=== PATIENT | female | born 1990 | race Caucasian/White ===

== ENCOUNTER 2018-09-09 22:25 | Emergency (ER) | payer MEDICAID, SELFPAY ==
[2018-09-09 22:26] VITALS: BP 109/70; PULSE 107; RESP 16; TEMP 36.5; O2SAT 95; BMI 26.5
--- NOTE | 2018-09-09 22:35 | ED.VISSUMM ---
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, indicates she has had a cough for 2 months her 32 weeks currently, uncomplicated no abdominal pain no vaginal bleeding no discharge eating and drinking bowel bladder habits been normal, she indicates her physicians are aware that she has been coughing and have given her a list of over the medic counter medication she can use but those are not helping and she presents to the emergency room because the persistence of the cough, she has no cardiopulmonary disease or disorders the cough is productive of thick mucus at times otherwise is a dry cough, she had copious rhinorrhea Physical Examination: [] Vitals are within normal range pulse ox is 96% on room air she has a harsh dry cough here General, no distress resting comfortably, drinking 7-Up HEENT is generally unremarkable quite a bit of rhinorrhea throat is clear The neck is supple no adenopathy Cardiovascular, regular rate and rhythm Lungs, clear bilateral Abdomen, soft nontender C Extremities, no clubbing cyanosis or edema Neurologic, awake alert answering questions appropriately moving all 4 extremities Test Results: [] Emergency Department Course and Treatment: [] Patient is in no distress except for the harsh coughing at this time chest x-rays obtained Afrin nasal spray aerosols, x-ray was unremarkable per radiology, did send off a pertussis nasal culture she understands at that result is not available tonight and she should have her doctors check it in a few days if it is positive she will require antibiotics she has been completely immunized she will be discharged on Proventil inhaler, Flonase Mucinex DM and she will follow-up with her MAINTENANCE OF WAY SUPERINTENDENT's tomorrow continue to force fluids and follow-up she is comp with this plan Treatment Plan: [] Disposition: [] Home stable Impression: [] 32 weeks uncomplicated, harsh cough for 2 months This note was generated with [employer] dictation software. It may contain incorrect words, spelling, and punctuation that were not noted in review of the chart prior to signing ED Disposition - Plan for ED Patient: Chief Complaint: Cold Sx Instructions: ED Upper Resp Infec No Abx Tx Prescriptions: Fluticasone 0.05% [Flonase Nasal [place]] 1 spray NASAL BID #1 bottle Guaifenesin/Dextromethorphan [Mucinex Dm ER 1,200-60 mg Tab] 1 ea PO BID #14 [email or web address] Referrals: Dave Thomas DO [Primary Care Provider] -
--- NOTE | 2018-09-09 22:40 | RAD_ITS ---
STUDY: X-RAY CHEST REASON FOR EXAM: Female, 28 years old. Cough, congestion for 3 weeks, TECHNIQUE: PA and lateral views of the chest. COMPARISON: 01/02/2015 FINDINGS: The lungs are clear and expanded. There is no demonstrated pleural abnormality. Normal size heart. Normal mediastinum and andreas. Normal visualized pulmonary arteries. Normal visualized aortic arch and descending thoracic aorta. Normal visualized thoracic spine. Normal visualized ribs, clavicles, and shoulders. There is no demonstrated abnormality of the visualized soft tissue structures of the upper abdomen. RAD/Chest PA and Lateral IMPRESSION: Normal x-ray examination of the chest. Electronically Signed: Haim Bryson MD at 22:54 EST , Service support ,
--- NOTE | 2018-09-09 22:46 | ED.DEP ---
ED Disposition - Plan for ED Patient: Chief Complaint: Cold Sx Instructions: ED Upper Resp Infec No Abx Tx Prescriptions: Fluticasone 0.05% [Flonase Nasal [place]] 1 spray NASAL BID #1 bottle Guaifenesin/Dextromethorphan [Mucinex Dm ER 1,200-60 mg Tab] 1 ea PO BID #14 [email or web address] Referrals: Dave Thomas DO [Primary Care Provider] -
[2018-09-09] MEDS: Ipratropium/Albuterol Sulfate 3 ML AMPUL.NEB INHALATION (22:56)
[2018-09-09 22:57] VITALS: PULSE 110; RESP 18
[2018-09-09 23:46] VITALS: BP 117/69; PULSE 106; RESP 16; O2SAT 97
== END 2018-09-09 23:47 | disposition home or self-care (01) ==
LOC: ED 22:54
PROVIDERS: Emergency Provider Emergency Medicine; Family Provider Student in an Organized Health Care Education/Training Program; PCP Student in an Organized Health Care Education/Training Program
DX: O99.513 Diseases of the respiratory system complicating pregnancy, third trimester (principal); J06.9 Acute upper respiratory infection, unspecified; R05 Cough; O99.333 Smoking (tobacco) complicating pregnancy, third trimester; Z3A.32 32 weeks gestation of pregnancy
CPT/HCPCS: 71046; 87798; 94640; 94664; 99282

== ENCOUNTER 2019-06-09 16:01 | Emergency (ER) | payer MEDICAID, SELFPAY ==
[2019-06-09 16:03] VITALS: BP 101/65; PULSE 107; PULSE 115; RESP 18; RESP 20; TEMP 36.8; O2SAT 96; O2SAT 98; BMI 25.6
--- NOTE | 2019-06-09 16:28 | ED.VIS.GEN ---
History of Present Illness Chief Complaint: Vag Bld, Preg Informant: Patient Onset: Today Context: Sudden Onset Narrative: Patient is a 28-year-old female currently 16 weeks gestation who is G 10 P4 presenting with sudden onset of vaginal bleeding. Patient came immediately to the emergency room. Patient states she was seen on the couch when she felt a gush of fluid. She thought he peed herself. She then went to the bathroom and said there was bright red blood like a.. Patient is very concerned she is having a recurrent miscarriage. She is not having any associated abdominal pain. She is otherwise been feeling well. Her FIRE PROTECTION INSPECTOR [facility]. Patient had RhoGam earlier in the , on April 19, about a month and a half ago. Patient states she is otherwise feeling well. She denies any other complaints or concerns at this time. Past Medical History - Allergies and Home Meds Allergies/Adverse Reactions: Allergies No Known Allergies Allergy (Verified 06/09/19 16:02) Primary Care Physician: Alice Mathew DO [Primary Care Provider] - Past Medical History: - - Multiple miscarriages Lives: Spouse/ Significant Other Review of Systems All systems negative except as indicated Genitourinary: Reports: - - 16 weeks gestation, vaginal bleeding Physical Exam Vital Signs/Narrative: Vital Signs Temp Pulse Resp BP Pulse Ox 06/09/19 16:03 98.3 F 107 H 20 H 101/65 96 Inital Vital Signs reviewed: Yes General: Well nourished, Well developed, No Acute Distress Head: Normocephalic, Atraumatic Eyes: Perrl, EOMI ENT: Moist mucous membranes, No rhinorrhea Neck: Supple, Nontender Cardiovascular: Regular rate, Regular rhythm, No murmurs Respiratory: No distress, CTA bilaterally, Chest nontender Abdomen: Soft, Nontender, Nondistended, Normal bowel sounds, - - Gravid abdomen with fundus about 3 cm below the level of the umbilicus : - - Bright red blood and fluid noted in vaginal canal, no cervical motion tenderness, cervical os is soft and approximate 1 cm. Bedside ultrasound performed by myself shows single intrauterine gestation with heart tones of 150. Back: Nontender, Normal Inspection Extremities: Nontender, No edema Skin: Normal color, No rash Neurological: Alert, Oriented x3, Cranial nerves II-XII grossly intact, Normal Strength, Normal Sensation Psychological: Normal affect, Normal Mood Diagnostic/Tx/Re-eval Laboratory Data 06/09/19 06/09/19 06/09/19 16:20 16:20 16:20 WBC 9.4 RBC 3.78 L Hgb 11.5 L Hct 34.0 L MCV 89.9 MCH 30.4 MCHC 33.8 RDW Std Deviation 39.9 RDW Coeff of Ricky 12.1 Plt Count 212 MPV 9.8 Immature Gran % (Auto) 0.400 Neut % (Auto) 69.4 Lymph % (Auto) 24.3 [place] % (Auto) 5.1 Eos % (Auto) 0.6 Baso % (Auto) 0.2 Absolute Neuts (auto) 6.5 Absolute Lymphs (auto) 2.27 Nucleated RBC % 0 Blood Type O NEGATIVE Screen NEGATIVE Baby's Blood Type PRESUMED RH POS Baby's EMBER TNP - Medical Decision Making Patient is evaluated for vaginal bleeding at 16 weeks . Patient also felt that she had a doyle of fluid before the bleeding started. Patient has low normal blood pressures but is asymptomatic. Likely this is normal for her. She is not having significant bleeding where I am concerned for an acute hemorrhagic anemia. CBC is normal. heart tones are obtained in the ER with bedside ultrasound. Pelvic exam is concerning for fluid that might be amniotic fluid as well as a soft cervix. There is thin red blood in the vaginal canal. Discussed with FIRE PROTECTION INSPECTOR on-call for [facility] who defers management to our OB as he does not think that this requires transfer at this time. Patient states she has follow-up with her FIRE PROTECTION INSPECTOR on Tuesday, 2 days from now. Discussed with Dr. oBb who recommends testing for premature rupture of membranes with swab as well as tested for maternal hemorrhage screen as well as rupture of membrane test. Rupture of membrane test was inconclusive secondary to amount of maternal bleeding. maternal screen was likely negative. Patient was ordered RhoGam however she ultimately refused it because she did not want to wait for it further and states she will just get it on Tuesday when she sees her FIRE PROTECTION INSPECTOR. In addition patient refused a redraw for fibrinogen to further test for rupture of membranes. Finally patient was started on azithromycin in case she did have premature rupture membranes to prevent infection. Patient is counseled to watch for signs of infection including fever. Patient is counseled on risk of spontaneous miscarriage and that there is no intervention possible at this time. She is counseled on signs and symptoms requiring return the emergency room. She is hemodynamically stable to follow-up with her FIRE PROTECTION INSPECTOR on Tuesday. Patient is counseled on signs and symptoms requiring return to the emergency room. Patient verbalizes agreement and understand this plan. Patient discharged home in stable and improved condition. ED Disposition - Plan for ED Patient: Disposition: Home or Assisted Living Instructions: POSSIBLE MISCARRIAGE (Threatened ) Prescriptions: Azithromycin 250 mg PO BID #14 tab Prescription Printed Referrals: Alice Mathew DO [Primary Care Provider] - Additional Instructions: Please follow-up with your FIRE PROTECTION INSPECTOR tomorrow or Tuesday. Call them/the answering line if you have further symptoms. Return the emergency room if you have heavier bleeding, lightheadedness, fever or other concerns. Your ultrasound did show a heart rate however the bleeding and cervix is concerning for a possible miscarriage. It is too soon to tell.
[2019-06-09 16:33] LABS: Absolute Lymphocyte Count 2.27 X10^3/uL (0.83-4.51); Absolute Neutrophil Count 6.5 X10^3/uL (2.0-7.7); Basophil# 0.02 X10^3/uL; Basophil% 0.2 % (0-1); Eosinophil# 0.06 X10^3/uL; Eosinophils% 0.6 % (0-5); Hemoglobin 11.5 g/dL (12.0-15.0); Lymphocyte # 2.27 X10^3/ul (4.0); Lymphocyte % 24.3 % (19-41); Mean Corp Hgb Conc 33.8 g/dL (32-36); Mean Corpuscular Hgb 30.4 pg (27.0-32.0); Mean Corpuscular Volume 89.9 fL (81-99); Mean Platelet Vol. 9.8 fl (6.2-12.0); Monocyte# 0.48 X10^3/uL; Monocyte% 5.1 % (0-10); NRBC Flagged by Analyzer 0 % (0-5); Neutrophil # 6.49 X10^3/uL (2.7-7.7); Neutrophil % 69.4 % (47-70); Platelet Count 212 K/mm3 (150-450); RBC Distribution Width CV 12.1 % (11.6-14.6); RBC Distribution Width SD 39.9 fl (35.1-43.9); Red Blood Count 3.78 M/mm3 (4.2-5.4); White Blood Count 9.4 K/mm3 (4.4-11.0)
--- NOTE | 2019-06-09 17:27 | NURSING ---
DR SRAVANTHI LOPEZ, DR CAI SHELLACKER
[2019-06-09 18:43] VITALS: BP 103/69; PULSE 86; RESP 16; O2SAT 98
[2019-06-09 19:46] VITALS: BP 97/68; PULSE 71; RESP 18; O2SAT 98
--- NOTE | 2019-06-09 19:58 | ED.RN ---
pt reports that she needed to return home due to getting her child home and her boyfriend. pt informed of delay of rhogam and that another blood drawn was needed for fibrinolytic testing. pt refused both saying that she would follow up with her OB on tuesday and that she didn't want to wait any longer in the ed. i apologized to the pt of the delays and her length of stay. dr. tellez was informed of pt's choice, pt was given written and verbal d/c instructions and voiced understanding. off unit via ambulation with steady gait.
--- OUTSIDE RECORDS SUMMARY | 2019-06-13 00:55 | XMS RPT_ITS | CCD ---
:1990 External Reference #:[id number] Author Organization [facility] Care Team Providers Name Role Phone Sunday Bowden Unavailable Unavailable ISAC, Sunday Unavailable Unavailable Crsis, N Unavailable Dennise, L Unavailable Unavailable FABIO KUMAR Attending Unavailable Shreya CAI Referring Unavailable NO PRIMARY CARE Primary Care Unavailable Luiza MCKENZIE Attending Unavailable Rashel CASTRO Referring Unavailable NO PRIMARY CARE Primary Care Unavailable ESTELITA Attending Unavailable SRAVANTHI Referring Unavailable NO PRIMARY CARE Primary Care Unavailable Luiza MCKENZIE Attending Unavailable SRAVANTHI Referring Unavailable NO PRIMARY CARE Primary Care Unavailable Codie JAVIER Attending Unavailable Rashel CASTRO Referring Unavailable NO PRIMARY CARE Primary Care Unavailable Allergies Reported Allergen Reaction(s) Severity Date of Onset Location Cat Translations: [ AO 01-06-2010 - Lynn steel [facility] CATS] [place] [facility] FISH Translations: [ AO 09-18-2012 - Dayana rawls [facility] FISH] [place] [facility] [place] Medications Medication Name Sig Date Prescriber Location meloxicam MELOXICAM 15 MG TABS 05-09-2017 [facility] MELOXICAM Sports Medicine and [id number] [facility] (82111) Dennise Problems Active Problems Category Problem Name Status Date Location Other nervous system Carpal tunnel Active 05-09-2017 - [facility] disorders syndrome [facility] Orthopaedics (4 8306) Past or Other Problems Category Problem Name Status Date Location Other connective tissue Hand pain Completed 05-19-2017 - [facility] Sports disease Medicine and Or thopaedics (98933) Results Result Name Value Range Unit Interpretation Flag Date Location absc on 2019-06-12 ABSC Final Interp Positive Abnormal 06-12-2019 S [facility] ([address]24) Comment: Order Comment: Ordered on n# [id number] Performed By: #### [id number], [id number] ####[facility] [address] [place] [address] Medical Director: Lopez Toro MD Pt Hx check done? Yes Normal 06-12-2019 [facility] (52876) Comment: Order Comment: Ordered on Fi n# [id number] Performed By: #### CD:[id number], [id number] ####[facility] [address] [place] [address] Medical Director: Lopez Toro MD VS SCI Gel 1+ Normal 06-12-2019 [facility] (66682) Comment: Order Comment: Ordered on Fi n# [id number] Performed By: #### CD:[id number], [id number] ####[facility] [address] [place] [address] Medical Director: Lopez Toro MD VS SCII Gel 1+ Normal 06-12-2019 [facility] (79410) Comment: Order Comment: Ordered on Fi n# [id number] Performed By: #### CD:[id number], [id number] ####[facility] [address] [place] [address] Medical Director: Lopez Toro MD abid on 2019-06-12 Antibody Identification Anti-D Normal 2018 [facility] (42959) Comment: Result Comment: 06/11/2019 2 3:09 TMESSINA Patient received Rhogam with in the last 4 months. Performed By: #### CD:[id number], [id number] ####[facility] [address] [place] [address] Medical Director: Lopez Toro MD rpr on 2019-05-18 Reagin Ab RPR Ql (S) Non Reactiive Normal 05-18 [facility] (00 000) Comment: Order Comment: Ordered on Fi n# [id number] Performed By: #### [id number] ## ##[facility] [address] [place], [place] [id number] Medical Director: Lopez Toro MD gp gc on 2019-05-18 Genprobe GC Negative Normal 05-18-2019 [facility] (32875) Comment: Order Comment: Ordered on Fi n# [id number] Result Comment: This Gonorrh oea assay is being performed via a second generation NAAT that utilize s target capture, capsule machine operator mediated amplification and dual kenet ic assay technologies. Performed By: #### [id number], 1 47577 ####[facility] [address] [place] [address] Medical Director: Lopez Toro MD gp chlam on 2019-05 Genprobe Chlamydia Negative Normal 05-18-2019 [facility] (57859) Comment: Order Comment: Ordered on Fi n# [id number] Result Comment: This Chlamyd ia assay is being performed via a second generation NAAT that utilize s target capture, capsule machine operator mediated amplification and dual kenet ic assay technologies. Performed By: #### [id number], 1 57533 ####[facility] [address] [place] [address] Medical Director: Lopez Toro MD rubella screen on Rubella Serology Immune Normal 05-17-2019 [facility] (28716) Comment: Order Comment: Ordered on Fi n# [id number] Performed By: #### [id number] ## ## [facility] Services [address] [place] [address] Specialized Developer: Lopez whitlock MD hiv 1o2 on HIV Panel 1&2 Nonreactive Normal 05-17-2019 [facility] (86064) Comment: Order Comment: Ordered on Fi n# [id number] Performed By: #### [id number] #### [facility] Services [address] [place] [address] Specialized Developer: Lopez whitlock MD hep c ab on 2019-05 Hepatitis C Antibody Nonreactive Normal 019 [facility] (00 000) Comment: Order Comment: Ordered on Fi n# [id number] Performed By: #### [id number], [id number] #### [facility] Services [address] [place] [address] Specialized Developer: Lopez whitlock MD hep b ag on 2019-05 Hepatitis B Surface Nonreactive Normal 05-17-20 19 [facility] (00 000) Comment: Order Comment: Ordered on Fi n# [id number] Result Comment: High levels of serum biotin may interfere with this test. Performed By: #### [id number], [id number] #### [facility] Services [address] [place] [address] Specialized Developer: Lopez whitlock MD c urine on C [facility] Dept of Laboratory Nor mal 05-17-2019 [facility] URINE Services General [address] [place] [address] [phone]) [phone] Name: IWONA SEVERINO : 1990 Admitting Provider: Gender: Female Financial [phone] Number: Location: [facility]. Admit 05/16/2019 Date: Discharge 05/16/2019 Date: Microbiology PROCEDURE: C URINE [] SOURCE: CLEAN CATCH BODY SITE: COLLECTED DATE/TIME: 05/16/20 19 17:04 EDT RECEIVED DATE/TIME: 05/16/2019 20:14 EDT START DATE/TIME: 05/16/2019 20:14 EDT FREE TEXT SOURCE: ORDERING PHYSICIAN: EDWIGE FISHMAN DO, FACOG FINAL REPORTS Final Report [] Verified Date/Time: 05/17/2019 14:15 EDT No growth after 24 hours. L=Low, H= High, *= Abnormal, C=Critical, f=Footnote, c=Corrected, i=Interp Data Name: IWONA SEVERINO Print Date05/21/2019 17:35 EDT Time: Comment: Performed By: #### [id number] ## ## [facility] Services [address] [place] [address] Specialized Developer: Lopez whitlock MD hemo on 2019-05-16 DIFF? No Normal 05-16-2019 [facility] (41030) Comment: Performed By: #### [id number], [id number] #### [facility] Services [address] [place] [address] Specialized Developer: Lopez whitlock MD Erythrocyte distribution 12.8 11.5-14.5 % Normal 05-16 [facility] (RBC) [Ratio] [facility] [place] (89577) Comment: Performed By: #### [id number], [id number] #### [facility] Services [address] [place] [address] Specialized Developer: Lopez whitlock MD Hematocrit (Bld) [Volume 34.9 36.0-46.0 % Low 05-16 [facility] fraction] [place] (00 000) Comment: Performed By: #### [id number], [id number] #### [facility] Services [address] [place] [address] Specialized Developer: Lopez whitlock MD Hemoglobin (Bld) 11.9 12.0-16.0 g/dL Low 05-16-2019 [facility] [Mass/Vol] [place] (0 0000) Comment: Performed By: #### [id number], [id number] #### [facility] [address] [place] [address] Specialized Developer: Lopez whitlock MD MCH (RBC) [Entitic mass] 31.0 27.0-34.0 pg Normal 05-16 [facility] (00 000) Comment: Performed By: #### [id number], [id number] #### [facility] Services [address] [place] [address] Specialized Developer: Lopez whitlock MD MCHC (RBC) [Mass/Vol] 34.0 32.0-37.0 g/dL Normal 05-16-20 19 [facility] (00 000) Comment: Performed By: #### [id number], [id number] #### [facility] Services [address] [place], [place] [address] Specialized Developer: Lopez whitlock MD MCV (RBC) [Entitic vol] 91.1 80.0-100.0 fL Normal 05-16 [facility] (00 000) Comment: Performed By: #### [id number], [id number] #### [facility] Services [address] [place], [place] [address] Specialized Developer: Lopez whitlock MD Nucleated RBC (Bld) [#/Vol] 0 /100WBC Normal [facility] (00 000) Comment: Performed By: #### [id number], [id number] #### [facility] Services [address] [place], [place] [address] Specialized Developer: Lopez whitlock MD Platelet mean volume 9.1 7.4-10.4 fL Normal 9 [facility] (Bld) [Entitic vol] Center (40770) Comment: Performed By: #### [id number], [id number] #### [facility] Services [address] [place] [address] Specialized Developer: Lopez whitlock MD Platelets (Bld) [#/Vol] 207 150-450 x1000 Normal 2018 [facility] (00 000) Comment: Performed By: #### [id number], [id number] #### [facility] Services [address] [place] [address] Specialized Developer: Lopez whitlock MD RBC (Bld) [#/Vol] 3.83 4.20-5.40 x10 Low 05-16-2019 [facility] (91037) Comment: Result Comment: Note: RBC mo rphology is normal unless otherwise stated. Evaluation performed only if differential is requested. Performed By: #### [id number], 215323 #### [facility] Services [address] [place], [place] [address] Specialized Developer: Lopez whitlock MD WBC (Bld) [#/Vol] 8.0 10*3/uL Normal 05-16-2019 [facility] (42164) Comment: Performed By: #### [id number], [id number] #### [facility] Services [address] [place], [place] [address] Specialized Developer: Lopez whitlock MD auto diff on 2019- 0-02 Basophils (Bld) [#/Vol] 0.03 0.00-0.20 x1000 Normal 2018 [facility] (67037) Comment: Performed By: #### [id number], [id number] #### [facility] Services [address] [place], [place] [address] Specialized Developer: Lopez whitlock MD Basos % 0.4 % Normal 05-16-2019 [facility] (48222) Comment: Performed By: #### [id number], [id number] #### [facility] Services [address] [place] [address] Specialized Developer: Lopez whitlock MD Eos Count 0.06 0.00-0.50 x1000 Normal 05-16-2019 [facility] (46396) Comment: Performed By: #### [id number], 073882 #### [facility] Services [address] [place], [place] [address] Specialized Developer: Lopez whitlock MD Eosinophils/100 WBC (Bld) 0.8 % Normal [facility] (47083) Comment: Performed By: #### [id number], [id number] #### [facility] Services [address] [place] [address] Specialized Developer: Lopez whitlock MD Lymphocytes (Bld) 2.12 1.20-4.80 x1000 Normal 05-16-2019 [facility] [#/Vol] [facility] (67174) Comment: Performed By: #### [id number], 395222 #### [facility] Services [address] [place], [place] [address] Specialized Developer: Lopez whitlock MD Lymphocytes/100 WBC (Bld) 26.4 % Normal [facility] (85679) Comment: Performed By: #### [id number], [id number] #### [facility] Services [address] [place], [place] [address] Specialized Developer: Lopez whitlock MD Mcclain Count 0.52 0.10-1.00 x1000 Normal 05-16-2019 [facility] (28960) Comment: Performed By: #### [id number], 571270 #### [facility] Services [address] [place], [place] [address] Specialized Developer: Lopez whitlock MD Monocytes/100 WBC (Bld) 6.4 % Normal 2018 [facility] (48696) Comment: Performed By: #### [id number], 406956 #### [facility] Services [address] [place], [place] [address] Specialized Developer: Lopez whitlock MD Neutrophils (Bld) 5.30 1.40-8.80 x1000 Normal 05-16-2019 [facility] [#/Vol[facility] (48433) Comment: Performed By: #### [id number], 362037 #### [facility] Services [address] [place] [address] Specialized Developer: Lopez whitlock MD Neutrophils/100 WBC (Bld) 66.0 % Normal [facility] (78563) Comment: Performed By: #### [id number], [id number] #### [facility] Services [address] [place] [address] Specialized Developer: Lopez whitlock MD phone msg on 05-07 Phone Msg Normal 05-07-20 [facility] From: L[facility]Z [facility] Sent: 05/07/2019 19:06:46 EDT (50753) Subject: Med Management Submitted: Order:ondansetron (Zofran 8 mg oral tablet) 1 tabs ORAL TID Qty: 30 tabs Duration: 10 days Refills: 1 Substitutions Allowed Route To Pharmacy - [facility] Signed by LOVELY HERNANDEZ [facility] [place] 05/07/2019 19:03:00 She is complaining of nausea and diarrhea. I recommended she try B6 and unisom but she said she didn't have any money. I sent zofran to her pharmacy and discussed risk of cardiac defect. us gravid echo less than 14 weeks office on 2019-04-24 Cholesterol _TA u/s date of exam 04/20/2019 Normal 04-24-2019 [facility] [Mass/Vol] Vi[facility] u/s [facility] LMP: 02/14/2019 Gestational Age: 9w2d LEANNA: 11/21/2019 (90622) U/S: 04/20/2019 Gestational Age: 9w1d LEANNA: 11/22/2019 Herrera IUP with cardiac a ctivity present _184__bpm @ _9_w_2 d with an LEANNA of 11/21/2019 [place] rump length measurements are consistent with given LMP dating Anatomic detail is extremely limited at this early gestational age no gross abnormalities were noted on examination YS 5.3 mm CRL 24.7 mm Normal uterus and ovaries Absence of fluid in pelvis. Comment: Order Comment: Ordered on n# [id number] Result Comment: Technologist : SOFIA Dictated By: EDWIGE FISHMAN DO, FACOG Signed By: Shreya FISHMAN DO, FACOG Transcribed: 04.24.2019 14:2 6 Signed Out: 04/24/19 14:26:4 0 ngpcr on 2019-04-11 GC PCR Source Genital Female Normal 04-11-2019 [facility] ([place]) (19182) Comment: Performed By: #### AMNI #### [place] [id number] [place], [place] [address] N. gonorrhoeae (PCR) Negative Negative Normal 9 [facility] ([place] (0000 0) Comment: Result Comment: Transport tu be received with two swabs. Review collection procedure. Inappropriate collection may cause aberrant results. Molecular (PCR) assay perfor med on the [employer] Regi 4800 System. Performed By: #### AMNI #### [address] [address] N. gonorrhoeae Interp See NG Interp N Normal [facility] ([place]) (0000 0) Comment: Result Comment: N. gonorrhoe ae DNA not detected. Specimen is presumptive negative for N. gonorrhoeae. A negative r esult does not preclude Neisseria gonorrhoeae infection because results de pend on adequate specimen collection, absence of inhibitors, and sufficien t DNA to be detected. See NG Interp N Performed By: #### AMNI #### [address] [address] ctpcr on 2019-04-11 C. trachomatis Interp See CT Interp N Normal [facility] ([place] (0000 0) Comment: Result Comment: C. trachomat is DNA not detected. Specimen is presumptive negative for C. trachomatis. A negative result does not p reclude C. trachomatis infection because results depend on adequate s pecimen collection, absence of inhibitors, and sufficient DNA to be det ected. See CT Interp N Performed By: #### CTPCR, NG PCR1 #### [place] [address] C.trachomatis PCR Negative Negative Normal 04-11-2019 [facility] ([place]) (0000 0) Comment: Result Comment: Transport tu be received with two swabs. Review collection procedure. Inappropriate collection may cause aberrant results. Molecular (PCR) assay perfor med on the Ana Regi 4800 system. Performed By: #### CTPCR, NG PCR1 #### [facility] [address] [place] [address] Chlam Source Genital Female Normal 04-11-2019 [facility] ([place] (47392) Comment: Performed By: #### CTPCR, NG PCR1 #### [facility] [address] [place] [address] hcgq on 2019-04-10 hCG, quantitative 74064.1 mIU/mL Normal 04-10-2019 [facility] ([place] (93088) Comment: Result Comment: HCG Quantita tive 3 Weeks Gestation mIU/mL 5.0 to 12.0 HCG Quantitative 4 Weeks Ges tation mIU/mL 10.0 to 708.0 HCG Quantitative 5 Weeks Ges tation mIU/mL 217.0 to 8245.0 HCG Quantitative 6 Weeks Ges tation mIU/mL 152.0 to 32,177.0 HCG Quantitative 7 Weeks Ges tation mIU/mL 4059.0 to 153,767.0 HCG Quantitative 8 Weeks Ges tation mIU/mL 31,366.0 to 149,094.0 HCG Quantitative 9 Weeks Ges tation mIU/mL 59,109.0 to 135,901.0 HCG Quantitative 10 Weeks Ge station mIU/mL 44,186.0 to 170,409.0 HCG Quantitative 12 Weeks Ge station mIU/mL 27,107.0 to 201,615.0 HCG Quantitative 14 Weeks Ge station mIU/mL 24,302.0 to 93,646.0 Performed By: #### CBC, ADIF F, ANEU, ABOG #### [place] [address] [address] #### BMP, HCGQ, GFR #### [facility] [address] [place] [address] gel abo on ABO/Rh Interp O NEG 04-10-2019 [facility] ([place]) ([address]31) Comment: Performed By: #### CBC, ADIF F, ANEU, ABOG #### [place] [address] #### BMP, HCGQ, GFR #### [address] [address] cbc on 2019-04-10 Erythrocyte distribution 13.0 11.5-14.5 % Normal 04-10 [facility] width (RBC) [Ratio] [facility] ([place]) ([address]79) Comment: Performed By: #### CBC, ADIF F, ANEU, ABOG #### [place] [address] #### BMP, HCGQ, GFR #### [place] [address] Hematocrit (Bld) [Volume 37.3 37.0-47.0 % Normal 04-10 [facility] fraction] ([place]) (0000 0) Comment: Performed By: #### CBC, ADIF F, ANEU, ABOG #### [place] [address] #### BMP, HCGQ, GFR #### [place] [address] Hemoglobin (Bld) 12.4 12.0-16.0 G/dL Normal 04-10-2019 [facility] [Mass/Vol] [facility] ([place] ([address]44) Comment: Performed By: #### CBC, ADIF F, ANEU, ABOG #### [place] [address] #### BMP, HCGQ, GFR #### [address] [address] MCH (RBC) [Entitic mass] 30.7 27.0-31.2 pg Normal 04-10 [facility] ([place]) (0000 0) Comment: Performed By: #### CBC, ADIF F, ANEU, ABOG #### [place] [address] #### BMP, HCGQ, GFR #### [facility] [address] [place], [place] [address] MCHC (RBC) [Mass/Vol] 33.1 33.0-37.0 G/dL Normal 04-10-20 19 [facility] ([place] (0000 0) Comment: Performed By: #### CBC, ADIF F, ANEU, ABOG #### [address] [address] #### BMP, HCGQ, GFR #### [address] [address] MCV (RBC) [Entitic vol] 92.8 80.0-94.0 fL Normal 2018 [facility] ([place] (0000 0) Comment: Performed By: #### CBC, ADIF F, ANEU, ABOG #### [place] [address] #### BMP, HCGQ, GFR #### [place] [address] Platelet mean volume 8.1 7.4-10.4 fL Normal 9 [facility] (Bld) [Entitic vol] ([place]) (83876) Comment: Performed By: #### CBC, ADIF F, ANEU, ABOG #### [place] [address] #### BMP, HCGQ, GFR #### [address] [address] Platelets (Bld) [#/Vol] 209 130-400 10 3/mcL Normal 2018 [facility] ([place]) (75017) Comment: Performed By: #### CBC, ADIF F, ANEU, ABOG #### [place] [address] #### BMP, HCGQ, GFR #### [place] [address] RBC (Bld) [#/Vol] 4.02 4.20-5.40 10 6/mcL Low 04-10-2019 [facility] ([place]) (0000 0) Comment: Performed By: #### CBC, ADIF F, ANEU, ABOG #### [facility] [place] [address] [place], [place] [address] #### BMP, HCGQ, GFR #### [address] [address] WBC (Bld) [#/Vol] 7.10 4.60-10.80 10 3/mcL Normal 04-10-2019 [facility] ([place] ([address]) Comment: Performed By: #### CBC, ADIF F, ANEU, ABOG #### [place] [address] #### BMP, HCGQ, GFR #### [address] [address] bmp on 2019-04-10 Calcium [Mass/Vol] 9.0 8.4-10.2 mg/dL Normal 04-10-2019 [facility] ([place] (0000 0) Comment: Performed By: #### CBC, ADIF F, ANEU, ABOG #### [place] [address] #### BMP, HCGQ, GFR #### [place] [address] Chloride [Moles/Vol] 104 98-107 mmol/L Normal 9 [facility] ([place] (0000 0) Comment: Performed By: #### CBC, ADIF F, ANEU, ABOG #### [place] [address] #### BMP, HCGQ, GFR #### [address] [address] CO2 [Moles/Vol] 23 22-29 mmol/L Normal 04-10-2019 [facility] ([place] ([address]329) Comment: Performed By: #### CBC, ADIF F, ANEU, ABOG #### [place] [address] #### BMP, HCGQ, GFR #### [address] [address] Creatinine [Mass/Vol] 0.52 0.55-1.02 mg/dL Low 04-10-20 19 [facility] ([place] (0000 0) Comment: Performed By: #### CBC, ADIF F, ANEU, ABOG #### [place] [address] #### BMP, HCGQ, GFR #### [address] [address] Electrolyte Balance 13.0 mEq/L Normal 04-10-2019 [facility] ([place] ([address]) Comment: Performed By: #### CBC, ADIF F, ANEU, ABOG #### [place] [address] #### BMP, HCGQ, GFR #### [address] [address] Glucose [Mass/Vol] 75 70-105 mg/dL Normal 04-10-2019 [facility] ([place] ([address]) Comment: Performed By: #### CBC, ADIF F, ANEU, ABOG #### [place] [address] #### BMP, HCGQ, GFR #### [address] [address] Potassium [Moles/Vol] 3.5 3.5-5.1 mmol/L Normal 04-10-20 19 [facility] ([place] (0000 0) Comment: Performed By: #### CBC, ADIF F, ANEU, ABOG #### [place] [address] #### BMP, HCGQ, GFR #### [address] [address] Sodium [Moles/Vol] 140 136-145 mmol/L Normal 04-10-2019 [facility] ([place] (0000 0) Comment: Performed By: #### CBC, ADIF F, ANEU, ABOG #### [place] [address] #### BMP, HCGQ, GFR #### [address] [address] Urea nitrogen [Mass/Vol] 4 7-18 mg/dL Low 04-10 [facility] ([place] ([address]35) Comment: Performed By: #### CBC, ADIF F, ANEU, ABOG #### [address] [address] #### BMP, HCGQ, GFR #### [facility] [address] [place] [address] Urea nitrogen/Creatinine [Mass 8 03-10 ratio Normal 04-10-2019 Critical access hospital] [facility] ([place]) ([address]68) Comment: Performed By: #### CBC, ADIF F, ANEU, ABOG #### [address] [address] #### BMP, HCGQ, GFR #### [address] [address] .neuabs on Neutrophils (Bld) 4.10 2.85-6.16 10 3/mcL Normal 04-10-2019 [facility] [#/Vol] [facility] ([place]) ([address]37) Comment: Performed By: #### CBC, ADIF F, ANEU, ABOG #### [address] [address] #### BMP, HCGQ, GFR #### [address] [address] .gfr on 2019-04-10 GFR Non- 139 ml/min/1.73sqm Normal 04-10-2019 [facility] ([place] ([address]49) Comment: Result Comment: GFR Population mean for Afri can [place]er, Non- Americans Ages 20-29 = 116 mL/min/1.73 sq.m. Ages 30-39 = 107 mL/min/1.73 sq.m. Ages 40-49 = 99 mL/min/1.73 sq.m. Ages 50-59 = 93 mL/min/1.73 sq.m. Ages 60-69 = 85 mL/min/1.73 sq.m. Ages 70+ = 75 mL/min/1.73 sq .m. Chronic Kidney Disease: Less than 60 mL/min/1.73 square meters End Stage Renal Disease: Les s than 15 mL/min/1.73 square meters Performed By: #### CBC, ADIF F, ANEU, ABOG #### [address] [address] #### BMP, HCGQ, GFR #### [address] [address] GFR 169 ml/min/1.73sqm Normal 03-16 [facility] ([place]) (0000 0) Comment: Result Comment: GFR Population mean for Afri can [place]er, Non- Americans Ages 20-29 = 116 mL/min/1.73 sq.m. Ages 30-39 = 107 mL/min/1.73 sq.m. Ages 40-49 = 99 mL/min/1.73 sq.m. Ages 50-59 = 93 mL/min/1.73 sq.m. Ages 60-69 = 85 mL/min/1.73 sq.m. Ages 70+ = 75 mL/min/1.73 sq .m. Chronic Kidney Disease: Less than 60 mL/min/1.73 square meters End Stage Renal Disease: Les s than 15 mL/min/1.73 square meters Performed By: #### CBC, ADIF F, ANEU, ABOG #### [address] [address] #### BMP, HCGQ, GFR #### [address] [address] .auto diff on 04-10 Ammonia (P) [Mass/Vol] 0.50 0.15-1.00 10 3/[facility] Normal [address] [place] [address] ([place]) ([id number]) Comment: Performed By: #### CBC, ADIF F, ANEU, ABOG #### [address] [address] #### BMP, HCGQ, GFR #### [address] [address] Basophils (Bld) 0.00 0.00-0.19 10 3/[facility] Normal 04-10-2019 [facility] [#/Vol] [facility] ([place]) ([id number]) Comment: Performed By: #### CBC, ADIF F, ANEU, ABOG #### [place] [address] #### BMP, HCGQ, GFR #### [address] [address] Basophils/100 WBC (Bld) 0.5 0.0-2.5 % Normal 2018 [facility] ([place]) (0000 0) Comment: Performed By: #### CBC, ADIF F, ANEU, ABOG #### [place] [address] #### BMP, HCGQ, GFR #### [address] [address] Eosinophils (Bld) 0.10 0.00-0.40 10 3/mcL Normal 04-10-2019 [facility] [#/Vol] [facility] ([place]) ([id number]) Comment: Performed By: #### CBC, ADIF F, ANEU, ABOG #### [place] [address] #### BMP, HCGQ, GFR #### [address] [address] Eosinophils/100 WBC (Bld) 1.1 0.0-7.0 % Normal 03-16 [facility] ([place]) (0000 0) Comment: Performed By: #### CBC, ADIF F, ANEU, ABOG #### [place] [address] #### BMP, HCGQ, GFR #### [address] [address] Lymphocytes (Bld) 2.30 0.77-3.85 10 3/[facility] Normal 04-10-2019 [facility] [#/Vol] [facility] ([place]) ([address]) Comment: Performed By: #### CBC, ADIF F, ANEU, ABOG #### [place] [address] #### BMP, HCGQ, GFR #### [address] [address] Lymphocytes/100 WBC (Bld) 32.6 10.0-50.0 % Normal 03-16 [facility] ([place]) ([id number]) Comment: Performed By: #### CBC, ADIF F, ANEU, ABOG #### [address] [address] #### BMP, HCGQ, GFR #### [facility] [address] [place] [address] Monocytes/100 WBC (Bld) 7.7 1.7-13.0 % Normal 2018 [facility] ([place]) (0000 0) Comment: Performed By: #### CBC, ADIF F, ANEU, ABOG #### [address] [address] #### BMP, HCGQ, GFR #### [facility] [address] [place] [address] Neutrophils/100 WBC (Bld) 58.1 37.0-80.0 % Normal 03-16 [facility] ([place] ([address]00) Comment: Performed By: #### CBC, ADIF F, ANEU, ABOG #### [address] [address] #### BMP, HCGQ, GFR #### [facility] [address] [place] [address] phone msg on 08 Phone Msg Normal 03-22-20 [facility] From: [facility] [place] To: Fabian ROSAS, Kayleigh; ([id number]) Sent: 03/22/2019 11:53:40 EDT Subject: BABY ASPIRIN Actions: Message She would like to know if we want her to start taking baby aspirin again, we had her take it with her first baby which she had five month ago. I just scheduled her for a confirmation. You would need to look in [facility] to see why she was taking it, she said because o f miscarriages Pt instructed to start ASA [address] Cai toxsc on 2018-08-15 QC TOXSC Valid Normal 08-15-2018 [facility] ([place]) ([id number]) Comment: Performed By: #### TOXSC ### # [address] [address] U Ampheta ([place]) Negative Normal 08-15-2018 [facility] ([place]) ([id number]) Comment: Performed By: #### TOXSC ### # [address] [address] U Odalis ([place]) Negative Normal 08-15-2018 [facility] ([place]) ([id number]) Comment: Performed By: #### TOXSC ### # [address] [address] U Raymond ([place]) Negative Normal 08-15-2018 [facility] ([place] ([id number]) Comment: Performed By: #### TOXSC ### # [address] [address] U Cannab ([place]) Negative Normal 08-15-2018 [facility] ([place]) ([id number]) Comment: Performed By: #### TOXSC ### # [address] [address] U Cocaine ([place]) Negative Normal 08-15-2018 [facility] ([place] ([id number]) Comment: Performed By: #### TOXSC ### # [address] [address] U Methadone ([place]) Negative Normal 08-15-2018 [facility] ([place]) ([id number]) Comment: Performed By: #### TOXSC ### # [address] [address] U PCP ([place]) Negative Normal 08-15-2018 [facility] ([place] ([id number]) Comment: Performed By: #### TOXSC ### # [address] [address] U TCA ([place]) Negative Normal 08-15-2018 [facility] ([place] ([id number]) Comment: Performed By: #### TOXSC ### # [address] [address] Urine Opiates ([place]) Negative Normal 08-15-2018 [facility] ([place] (30652) Comment: Performed By: #### TOXSC ### # [facility] [address] [place], [place] [address] amni on 2018-08-15 Amnisure Negative Negative Normal 08-15-2018 [facility] ([place]) ([address]) Comment: Performed By: #### AMNI #### [facility] [address] [place], [place] [address] office visit on 02-21-05 Documentation of Done Invalid 05-19-2017 - [facility] current Interpretation Code 05-19-2017 [facility] and (procedure) Orthopae dics ([id number]) Protein mass conc Done Invalid 05-19-2017 - [facility] Interpretation Code 05-19-2017 [facility] ([id number]) Tobacco smoking Current Invalid 05-19-2017 - [facility] status NHIS every day Interpretation Code 05-19-20 [facility] smoker Medicine a nd Orthopaedi cs ([id number]) Tobacco use CPHS Current Invalid 05-19-2017 - [facility] every day Interpretation Code 05-19-2017 [facility] smoker Medicine a nd Orthopaedi cs ([id number]) Vital Signs Vital Sign Description Value / Unit Date Location The following section is limited to 5 en tries per type and includes entries from the following time range: 20170519 - 5. BMI (Body Mass Index) 23.91 kg/m2 05-19-2017 - 05-19-2017 [facility] ([address]671) Height 160.02 cm 05-19-2017 - 05-19-2017 [facility] ([address]15) Weight 61.24 kg 05-19-2017 - 05-19-2017 [facility] ([id number]) Encounters Date Type Reason Provider Location 10-19-2016 - Ambulatory ROD CHAU [facility] 10-20-2016 [place] (0000 0) 09-13-2018 Patient encounter MAR cheng's procedure PARK CASTRO [facility] ([id number]) PRIMARY CARE 07-20-2018 Patient encounter DARION Jarrett MAGALY Ray Ch ildren's procedure EDWIGE FISHMAN MD [facility] Hospital ([id number]) PRIMARY CARE 05-25-2018 Patient encounter BARBARA CAPONE Cory C hildren's procedure EDWIGE FISHMAN MD NO Hospital ([id number]) PRIMARY CARE 03-15-2018 Patient encounter DARION Jarrett MAGALY Yuanron Ch ildren's procedure PARK CASTRO MD NO [facility] ([id number]) PRIMARY CARE 02-28-2018 Patient encounter CHASE MCCARTHY [facility] (00 000) LOVELY HERNANDEZ NO PRIMARY CARE Plan of Treatment Plan Description Date Location EMG EMG 05-19-2017 [facility]-2017 [facility] ([id number]) Nerve Conduction Nerve Conduction 05-19-2017 - [facility] 05-19-2017 [facility] (07890) X-Ray, Wrist X-Ray, Wrist 05-19-2017 - [facility] 05-19-2017 [facility] (48138) Appointment Appointment 05-19-2017 - [facility] 05-19-2017 [facility] ([id number]) Payers Payer Name Policy Number Location [facility] [id number] [facility] ([id number]) [id number] [facility] ([id number]) [id number] [facility] ([id number]) [id number] [facility] ([id number]) [id number] [facility] ([id number]) [id number] [facility] ([id number]) The following information is from the original human readable contentNo Payer Records FoundNo Payer Records FoundNo Payer Records FoundNo Payer Records FoundNo Payer Records Found Summary Purpose Family History No Family History Records FoundNo Family History Records FoundNo Family History Records FoundNo Family History Records Found Advance Directives No Advanced Directives Records FoundNo Advanced Directives Records FoundNo Advanced Directives Records FoundNo Advanced Directives Records Found Additional Source Comments FOR RECORDS PERTAINING TO PATIENTS WHO ARE OR HAVE BEEN ENROLLED IN A CHEMICAL DEPENDENCY/SUBSTANCE ABUSE PROGRAM, SOME INFORMATION MAY BE OMITTED. This clinical summary was aggregated from multiple sources. Caution should be exercised in using it in the provision of clinical care. This summary normalizes information from multiple sources, and as a consequence, information in this document may materially changethe coding, format and clinical context of patient data. In addition, data may be omittedin some cases. CLINICAL DECISIONS SHOULD BE BASED ON THE PRIMARY CLINICAL RECORDS. [facility] provides no warranty or guarantee of the accuracy or completeness of information in this document. UNRECOGNIZED CONTENT PROVIDED BELOW FOR UNRECOGNIZED SECTION INFORMATION SOURCE DATE CREATED AUTHOR AUTHOR'S ORGANIZATIO N 02/08/2018 [facility] DATE CREATED AUTHOR AUTHOR'S ORGANIZATIO N 09/28/2018 [facility] DATE CREATED AUTHOR AUTHOR'S ORGANIZATIO N 04/11/2019 [facility] ([place]) DATE CREATED AUTHOR AUTHOR'S ORGANIZATIO N 06/12/2019 [facility]
--- OUTSIDE RECORDS SUMMARY | 2019-06-13 00:59 | XMS RPT_ITS | CCD ---
:1990 External Reference #:[id number] Author Organization [facility] Care Team Providers Name Role Phone Sunday Bowden Unavailable Unavailable ISAC, Sunday Unavailable Unavailable Criss, N Unavailable Dennise, L Unavailable Unavailable FABIO [...] [ AO 01-06-2010 - Lynn steel [facility] CATS] [place] [facility] Translations: [ AO 09-18-2012 - Dayana rawls [facility] FISH] [place] [facility] Medications Medication Name Sig Date Prescriber Location meloxicam MELOXICAM 15 MG TABS 05-09-2017 [facility] ical Center MELOXICAM Sports Medicine and [id number] [facility] (62150) Dennise Problems Active Problems Category Problem Name Status Date Location Other nervous system Carpal tunnel Active 05-09-2017 [facility] disorders syndrome [facility] Orthopaedics (4 5657) Past or Other Problems Category Problem Name Status Date Location Other connective tissue Hand pain Completed 05-19-2017 - [facility] Sports disease Medicine and Or thopaedics (51317) Results Result Name Value Range Unit Interpretation Flag Date Location absc on 2019-06-12 ABSC Final Interp Positive Abnormal 06-12-2019 S [facility] (17607) Comment: Order Comment: Ordered on n# [id number] Performed By: #### [id number], [id number] ####[facility] [address] [place] [address] Medical Director: Lopez Toro MD Pt Hx check done? Yes Normal 06-12-2019 [facility] (80134) Comment: Order Comment: Ordered on Fi n# [id number] Performed By: #### CD:[id number], [id number] ####[facility] [address] [place] [address] Medical Director: Lopez Toro MD VS SCI Gel 1+ Normal 06-12-2019 [facility] (80494) Comment: Order Comment: Ordered on Fi n# [id number] Performed By: #### [id number], [id number] ####[facility] [address] [place] [address] Medical Director: Lopez Toro MD VS SCII Gel 1+ Normal 06-12-2019 [facility] (53035) Comment: Order Comment: Ordered on Fi n# [id number] Performed By: #### CD:[id number], [id number] ####[facility] [address] [place] [address] Medical Director: Lopez Toro MD abid on 2019-06-12 Antibody Identification Anti-D Normal 2018 [facility] (34806) Comment: Result Comment: 06/11/2019 2 3:09 TMESSINA Patient received Rhogam with in the last 4 months. Performed By: #### CD:[id number], [id number] ####[facility] [address] [place] [address] Medical Director: Lopez oTro MD rpr on 2019-05-18 Reagin Ab RPR Ql (S) Non Reactiive Normal 05-18 [facility] (00 000) Comment: Order Comment: Ordered on Fi n# [id number] Performed By: #### [id number] ## ##[facility] [address] [place], [place] [id number] Medical Director: Lopez Toro MD gp gc on 2019-05-18 Genprobe GC Negative Normal 05-18-2019 [facility] (42509) Comment: Order Comment: Ordered on Fi n# [id number] Result Comment: This Gonorrh oea assay is being performed via a second generation NAAT that utilize s target capture, guest specialist mediated amplification and dual kenet ic assay technologies. Performed By: #### [id number], 1 [id number] ####[facility] [address] [place] [address] Medical Director: Lopez Toro MD gp chlam on 2019-05 Genprobe Chlamydia Negative Normal 05-18-2019 [facility] (88412) Comment: Order Comment: Ordered on Fi n# [id number] Result Comment: This Chlamyd ia assay is being performed via a second generation NAAT that utilize s target capture, guest specialist mediated amplification and dual kenet ic assay technologies. Performed By: #### [id number], 1 41852 ####[facility] [address] [place] [address] Medical Director: Lopez Toro MD rubella screen on Rubella Serology Immune Normal 05-17-2019 [facility] (71752) Comment: Order Comment: Ordered on Fi n# [id number] Performed By: #### [id number] ## ## [facility] [address] [place] [address] Javascript Application Developer: Lopez whitlock MD hiv 1o2 on HIV Panel 1&2 Nonreactive Normal 05-17-[address] [facility] (55392) Comment: Order Comment: Ordered on Fi n# [id number] Performed By: #### [id number] #### [facility] [address] [place] [address] Javascript Application Developer: Lopez whitlock MD hep c ab on 2019-05 Hepatitis C Antibody Nonreactive Normal 019 [facility] (00 000) Comment: Order Comment: Ordered on Fi n# [id number] Performed By: #### [id number], [id number] #### [facility] [address] [place] [address] Javascript Application Developer: Lopez whitlock MD hep b ag on 2019-05 Hepatitis B Surface Nonreactive Normal 05-17-20 19 [facility] (00 000) Comment: Order Comment: Ordered on Fi n# [id number] Result Comment: High levels of serum biotin may interfere with this test. Performed By: #### [id number], [id number] #### [facility] [address] [place] [address] Javascript Application Developer: Lopez whitlock MD c urine on C [facility] Nor mal 05-17-2019 [facility] Services General [address] [place] [address] [id number]) [id number] Name: IWONA SEVERINO : 1990 Admitting Provider: Gender: Female Financial [phone] Number: Location: [facility]. Admit 05/16/2019 Date: Discharge 05/16/2019 Date: Microbiology [...] 17:35 EDT Time: Comment: Performed By: #### [id number] ## ## [facility] [address] [place] [address] Javascript Application Developer: Lopez whitlock MD hemo on 2019-05-16 DIFF? No Normal 05-16-2019 [facility] (76388) Comment: Performed By: #### [id number], [id number] #### [facility] [address] [place] [address] Javascript Application Developer: Lopez whitlock MD Erythrocyte distribution 12.8 11.5-14.5 % Normal 05-16 [facility] (RBC) [Ratio] [facility] [place] (17017) Comment: Performed By: #### [id number], [id number] #### [facility] [address] [place] [address] Javascript Application Developer: Lopez whitlock MD Hematocrit (Bld) [Volume 34.9 36.0-46.0 % Low 05-16 [facility] fraction] [place] (00 000) Comment: Performed By: #### [id number], [id number] #### [facility] [address] [place] [address] Javascript Application Developer: Lopez whitlock MD Hemoglobin (Bld) 11.9 12.0-16.0 g/dL Low 05-16-2019 [facility] [Mass/Vol] [place] (0 0000) Comment: Performed By: #### [id number], [id number] #### [facility] [address] [place] [address] Javascript Application Developer: Lopez whitlock MD MCH (RBC) [Entitic mass] 31.0 27.0-34.0 pg Normal 05-16 [facility] (00 000) Comment: Performed By: #### [id number], [id number] #### [facility] [address] [place] [address] Javascript Application Developer: Lopez whitlock MD MCHC (RBC) [Mass/Vol] 34.0 32.0-37.0 g/dL Normal 05-16-20 19 [facility] (00 000) Comment: Performed By: #### [id number], [id number] #### [facility] [address] [place], [place] [address]30 Javascript Application Developer: Lopez whitlock MD MCV (RBC) [Entitic vol] 91.1 80.0-100.0 fL Normal 05-16 [facility] (00 000) Comment: Performed By: #### [id number], [id number] #### [facility] [address] [place], [place] [address] Javascript Application Developer: Lopez whitlock MD Nucleated RBC (Bld) [#/Vol] 0 /100WBC Normal [facility] (00 000) Comment: Performed By: #### [id number], [id number] #### [facility] [address] [place], [place] [address] Javascript Application Developer: Lopez whitlock MD Platelet mean volume 9.1 7.4-10.4 fL Normal 9 [facility] (Bld) [Entitic vol] Center (67742) Comment: Performed By: #### [id number], [id number] #### [facility] [address] [place] [address] Javascript Application Developer: Lopez whitlock MD Platelets (Bld) [#/Vol] 207 150-450 x1000 Normal 2018 [facility] (00 000) Comment: Performed By: #### [id number], [id number] #### [facility] [address] [place] [address] Javascript Application Developer: Lopez whitlock MD RBC (Bld) [#/Vol] 3.83 4.20-5.40 x10 Low 05-16-2019 [facility] (20218) Comment: Result Comment: Note: RBC mo rphology is normal unless otherwise stated. Evaluation performed only if differential is requested. Performed By: #### [id number], [id number] #### [facility] [address] [place], [place] [address] Javascript Application Developer: Lopez whitlock MD WBC (Bld) [#/Vol] 8.0 10*3/uL Normal 05-16-2019 [facility] (98103) Comment: Performed By: #### [id number], [id number] #### [facility] [address] [place], [place] [address] Javascript Application Developer: Lopez whitlock MD auto diff on 2019- 0-02 Basophils (Bld) [#/Vol] 0.03 0.00-0.20 x1000 Normal 2018 [facility] ter (28641) Comment: Performed By: #### [id number], [id number] #### [facility] [address] [place], [place] [address] Javascript Application Developer: Lopez whitlock MD Basos % 0.4 % Normal 05-16-2019 [facility] (00083) Comment: Performed By: #### [id number], [id number] #### [facility] [address] [place] [address] Javascript Application Developer: Lopez whitlock MD Eos Count 0.06 0.00-0.50 x1000 Normal 05-16-2019 [facility] (34692) Comment: Performed By: #### [id number], [id number] #### [facility] [address] [place], [place] [address] Javascript Application Developer: Lopez whitlock MD Eosinophils/100 WBC (Bld) 0.8 % Normal [facility] (11817) Comment: Performed By: #### [id number], [id number] #### [facility] [address] [place] [address] Javascript Application Developer: Lopez whitlock MD Lymphocytes (Bld) 2.12 1.20-4.80 x1000 Normal 05-16-2019 [facility] [#/Vol] [facility] (95866) Comment: Performed By: #### [id number], [id number] #### [facility] [address] [place], [place] [address] Javascript Application Developer: Lopez whitlock MD Lymphocytes/100 WBC (Bld) 26.4 % Normal [facility] (19125) Comment: Performed By: #### [id number], 735661 #### [facility] [address] [place], [place] [address] Javascript Application Developer: Lopez whitlock MD Villalba Count 0.52 0.10-1.00 x1000 Normal 05-16-2019 [facility] (42382) Comment: Performed By: #### [id number], [id number] #### [facility] [address] [place], [place] [address] Javascript Application Developer: Lopez whitlock MD Monocytes/100 WBC (Bld) 6.4 % Normal 2018 [facility] (50762) Comment: Performed By: #### [id number], [id number] #### [facility] [address] [place], [place] [address] Javascript Application Developer: Lopez whitlock MD Neutrophils (Bld) 5.30 1.40-8.80 x1000 Normal 05-16-2019 [facility] [#/Vol] [facility] (37117) Comment: Performed By: #### [id number], [id number] #### [facility] [address] [place] [address] Javascript Application Developer: Lopez whitlock MD Neutrophils/100 WBC (Bld) 66.0 % Normal [facility] (60178) Comment: Performed By: #### [id number], [id number] #### [facility] [address] [place] [address] Javascript Application Developer: Lopez whitlock MD phone msg on 05-07 Phone Msg Normal 05-07-20 [facility] From: LOVELY HERNANDEZ [facility] Sent: 05/07/2019 19:06:46 EDT (87613) Subject: Med Management Submitted: Order:ondansetron (Zofran 8 mg oral tablet) 1 tabs ORAL TID Qty: 30 tabs Duration: 10 days Refills: 1 Substitutions Allowed Route To Pharmacy - [facility] Signed by [facility]/07/2019 19:03:00 She is complaining of nausea and diarrhea. I recommended she try B6 and unisom but she said she didn't have any money. I sent zofran to her pharmacy and discussed risk of cardiac defect. us gravid echo less than 14 weeks office on 2019-04-24 Cholesterol _TA u/s date of exam 04/20/2019 Normal 04-24-2019 [facility] [Mass/Vol] [facility] LMP: 02/14/2019 Gestational Age: 9w2d LEANNA: 11/21/2019 (78200) U/S: 04/20/2019 Gestational Age: 9w1d LEANNA: 11/22/2019 Herrera IUP with cardiac a ctivity present _184__bpm @ _9_w_2 d with an LEANNA of 11/21/2019 [place] rump length measurements are consistent with given LMP dating Anatomic detail is extremely limited at this early gestational age no gross abnormalities were noted on examination YS 5.3 mm CRL 24.7 mm Normal uterus and ovaries Absence of fluid in pelvis. Comment: Order Comment: Ordered on n# [id number] Result Comment: Technologist : SOFIA Dictated By: EDWIGE FISHMAN DO, FACOG Signed By: Shreya FISHMAN DO, FACOG Transcribed: 04.24.2019 14:2 6 Signed Out: 04/24/19 14:26:4 0 ngpcr on 2019-04-11 GC PCR Source Genital Female Normal 04-11-2019 [facility] ([place]) (11122) Comment: Performed By: #### AMNI #### [place] [address] [place], [place] [address] N. gonorrhoeae (PCR) Negative Negative Normal 9 [facility] ([place]) (0000 0) Comment: Result Comment: Transport tu be received with two swabs. Review collection procedure. Inappropriate collection may cause aberrant results. Molecular (PCR) assay perfor med on the [employer] Regi 4800 System. Performed By: #### AMNI #### [address] [address] N. gonorrhoeae Interp See NG Interp N Normal [facility] ([place]) (0000 0) Comment: Result Comment: N. gonorrhoe ae DNA not detected. Specimen is presumptive negative for N. gonorrhoeae. A negative r esult does not preclude Neisseria gonorrhoeae infection because results de pend on adequate specimen collection, absence of inhibitors, and sufficien t DNA to be detected. See NG Interp N Performed By: #### AMNI #### [address] [address] ctpcr on 2019-04-[address]omat[address] Interp See CT Interp N Normal [facility] ([place]) (0000 0) Comment: Result Comment: C. trachomat is DNA not detected. Specimen is presumptive negative for C. trachomatis. A negative result does not p reclude C. trachomatis infection because results depend on adequate s pecimen collection, absence of inhibitors, and sufficient DNA to be det ected. See CT Interp N Performed By: #### CTPCR, NG PCR1 #### [place] [address] C.trachomatis PCR Negative Negative Normal 04-11-2019 [facility] ([place]) (0000 0) Comment: Result Comment: Transport tu be received with two swabs. Review collection procedure. Inappropriate collection may cause aberrant results. Molecular (PCR) assay perfor med on the [employer] Regi 4800 system. Performed By: #### CTPCR, NG PCR1 #### [facility] [address] [place] [address] Chlam Source Genital Female Normal 04-11-2019 [facility] ([place]) (41902) Comment: Performed By: #### CTPCR, NG PCR1 #### [facility] [address] [place] [address] hcgq on 2019-04-10 hCG, quantitative 74871.1 mIU/mL Normal 04-10-2019 [facility] ([place]) (23743) Comment: Result Comment: HCG Quantita tive 3 [...] CBC, ADIF F, ANEU, ABOG #### [facility] [address] [address] #### BMP, HCGQ, GFR #### [facility] [address] [place] [address] gel abo on ABO/Rh Interp O NEG 04-10-2019 [facility] ([place]) (06101) Comment: Performed By: #### CBC, ADIF F, ANEU, ABOG #### [place] [address] #### BMP, HCGQ, GFR #### [address] [address] cbc on 2019-04-10 Erythrocyte distribution 13.0 11.5-14.5 % Normal 04-10 [facility] width (RBC) [Ratio] [facility] ([place]) (18927) Comment: Performed By: #### CBC, ADIF F, ANEU, ABOG #### [place] [address] #### BMP, HCGQ, GFR #### [place] [address] Hematocrit (Bld) [Volume 37.3 37.0-47.0 % Normal 04-10 [facility] fraction] ([place]) (0000 0) Comment: Performed By: #### CBC, ADIF F, ANEU, ABOG #### [place] [address] #### BMP, HCGQ, GFR #### [place] [address] Hemoglobin (Bld) 12.4 12.0-16.0 G/dL Normal 04-10-2019 [facility] [Mass/Vol] [facility] ([place]) (66876) Comment: Performed By: #### CBC, ADIF F, ANEU, ABOG #### [place] [address] #### BMP, HCGQ, GFR #### [address] [address] MCH (RBC) [Entitic mass] 30.7 27.0-31.2 pg Normal 04-10 [facility] ([place]) (0000 0) Comment: Performed By: #### CBC, ADIF F, ANEU, ABOG #### [place] [address] #### BMP, HCGQ, GFR #### [facility] [address] [employer], [place] [address] MCHC (RBC) [Mass/Vol] 33.1 33.0-37.0 G/dL Normal 04-10-20 19 [facility] ([place]) (0000 0) Comment: Performed By: #### CBC, ADIF F, ANEU, ABOG #### [address] [address] #### BMP, HCGQ, GFR #### [address] [address] MCV (RBC) [Entitic vol] 92.8 80.0-94.0 fL Normal 2018 [facility] ([place] (0000 0) Comment: Performed By: #### CBC, ADIF F, ANEU, ABOG #### [place] [address] #### BMP, HCGQ, GFR #### [place] [address] Platelet mean volume 8.1 7.4-10.4 fL Normal 9 [facility] (Bld) [Entitic vol] ([place]) ([address]41) Comment: Performed By: #### CBC, ADIF F, ANEU, ABOG #### [place] [address] #### BMP, HCGQ, GFR #### [address] [address] Platelets (Bld) [#/Vol] 209 130-400 10 3/mcL Normal 2018 [facility] ([place]) (10122) Comment: Performed By: #### CBC, ADIF F, ANEU, ABOG #### [place] [address] #### BMP, HCGQ, GFR #### [place] [address] RBC (Bld) [#/Vol] 4.02 4.20-5.40 10 6/mcL Low 04-10-2019 [facility] ([place]) (0000 0) Comment: Performed By: #### CBC, ADIF F, ANEU, ABOG #### [facility] [place] [address] [place], [place] [address] #### BMP, HCGQ, GFR #### [address] [address] WBC (Bld) [#/Vol] 7.10 4.60-10.80 10 3/mcL Normal 04-10-2019 [facility] ([place] (34759) Comment: Performed By: #### CBC, ADIF F, ANEU, ABOG #### [place] [address] #### BMP, HCGQ, GFR #### [address] [address] bmp on 2019-04-10 Calcium [Mass/Vol] 9.0 8.4-10.2 mg/dL Normal 04-10-2019 [facility] ([place] (0000 0) Comment: Performed By: #### CBC, ADIF F, ANEU, ABOG #### [place] [address] #### BMP, HCGQ, GFR #### [place] [address] Chloride [Moles/Vol] 104 98-107 mmol/L Normal 9 [facility] ([place] (0000 0) Comment: Performed By: #### CBC, ADIF F, ANEU, ABOG #### [place] [address] #### BMP, HCGQ, GFR #### [address] [address] CO2 [Moles/Vol] 23 22-29 mmol/L Normal 04-10-2019 Counts include 234 beds at the [facility] ([place]) ([address]81) Comment: Performed By: #### CBC, ADIF F, ANEU, ABOG #### [place] [address] #### BMP, HCGQ, GFR #### [address] [address] Creatinine [Mass/Vol] 0.52 0.55-1.02 mg/dL Low 04-10-20 19 [facility] ([place] (0000 0) Comment: Performed By: #### CBC, ADIF F, ANEU, ABOG #### [place] [address] #### BMP, HCGQ, GFR #### [address] [address] Electrolyte Balance 13.0 mEq/L Normal 04-10-2019 [facility] ([place] (47497) Comment: Performed By: #### CBC, ADIF F, ANEU, ABOG #### [place] [address] #### BMP, HCGQ, GFR #### [address] [address] Glucose [Mass/Vol] 75 70-105 mg/dL Normal 04-10-2019 [facility] ([place] (88437) Comment: Performed By: #### CBC, ADIF F, ANEU, ABOG #### [place] [address] #### BMP, HCGQ, GFR #### [address] [address] Potassium [Moles/Vol] 3.5 3.5-5.1 mmol/L Normal 04-10-20 19 [facility] ([place] (0000 0) Comment: Performed By: #### CBC, ADIF F, ANEU, ABOG #### [place] [address] #### BMP, HCGQ, GFR #### [address] [address] Sodium [Moles/Vol] 140 136-145 mmol/L Normal 04-10-2019 [facility] ([place] (0000 0) Comment: Performed By: #### CBC, ADIF F, ANEU, ABOG #### [place] [address] #### BMP, HCGQ, GFR #### [address] [address] Urea nitrogen [Mass/Vol] 4 7-18 mg/dL Low 04-10 [facility] ([place] ([address]299) Comment: Performed By: #### CBC, ADIF F, ANEU, ABOG #### [address] [address] #### BMP, HCGQ, GFR #### [facility] [address] [place] [address] Urea nitrogen/Creatinine [Mass 8 03-10 ratio Normal 04-10-2019 [facility] ([place]) ([address]39) Comment: Performed By: #### CBC, ADIF F, ANEU, ABOG #### [address] [address] #### BMP, HCGQ, GFR #### [address] [address] .neuabs on Neutrophils (Bld) 4.10 2.85-6.16 10 3/mcL Normal 04-10-2019 [facility] [#/Vol] [facility] ([place] (73925) Comment: Performed By: #### CBC, ADIF F, ANEU, ABOG #### [address] [address] #### BMP, HCGQ, GFR #### [address] [address] .gfr on 2019-04-10 GFR Non- 139 ml/min/1.73sqm Normal 04-10-2019 [facility] ([place] (95812) Comment: Result Comment: GFR Population mean for Afri can Cymraes, Non- Americans Ages 20-29 = 116 mL/min/1.73 [...] #### CBC, ADIF F, ANEU, ABOG #### [address] [address] #### BMP, HCGQ, GFR #### [address] [address] GFR 169 ml/min/1.73sqm Normal 03-16 [facility] ([place]) (0000 0) Comment: Result Comment: GFR Population mean for Afri can Cymraes, Non- Americans Ages 20-29 = 116 mL/min/1.73 [...] #### CBC, ADIF F, ANEU, ABOG #### [address] [address] #### BMP, HCGQ, GFR #### [address] [address] .auto diff on 04-10 Ammonia (P) [Mass/Vol] 0.50 0.15-1.00 10 3/[facility] Normal [address] [place] [address] ([place]) ([address]1958) Comment: Performed By: #### CBC, ADIF F, ANEU, ABOG #### [address] [address] #### BMP, HCGQ, GFR #### [address] [address] Basophils (Bld) 0.00 0.00-0.19 10 3/[facility] Normal 04-10-2019 [facility] [#/Vol] [facility] ([place] (17206) Comment: Performed By: #### CBC, ADIF F, ANEU, ABOG #### [place] [address] #### BMP, HCGQ, GFR #### [address] [address] Basophils/100 WBC (Bld) 0.5 0.0-2.5 % Normal 2018 [facility] ([place]) (0000 0) Comment: Performed By: #### CBC, ADIF F, ANEU, ABOG #### [place] [address] #### BMP, HCGQ, GFR #### [address] [address] Eosinophils (Bld) 0.10 0.00-0.40 10 3/mcL Normal 04-10-2019 A [facility] [#/Vol] [facility] ([place]) (54182) Comment: Performed By: #### CBC, ADIF F, ANEU, ABOG #### [place] [address] #### BMP, HCGQ, GFR #### [address] [address] Eosinophils/100 WBC (Bld) 1.1 0.0-7.0 % Normal 03-16 [facility] ([place]) (0000 0) Comment: Performed By: #### CBC, ADIF F, ANEU, ABOG #### [place] [address] #### BMP, HCGQ, GFR #### [address] [address] Lymphocytes (Bld) 2.30 0.77-3.85 10 3/[facility] Normal 04-10-2019 A [facility] [#/Vol] [facility] ([place]) ([address]47) Comment: Performed By: #### CBC, ADIF F, ANEU, ABOG #### [place] [address] #### BMP, HCGQ, GFR #### [address] [address] Lymphocytes/100 WBC (Bld) 32.6 10.0-50.0 % Normal 03-16 [facility] ([place]) (73914) Comment: Performed By: #### CBC, ADIF F, ANEU, ABOG #### [address] [address] #### BMP, HCGQ, GFR #### [facility] [address] [place] [address] Monocytes/100 WBC (Bld) 7.7 1.7-13.0 % Normal 2018 [facility] ([place]) (0000 0) Comment: Performed By: #### CBC, ADIF F, ANEU, ABOG #### [address] [address] #### BMP, HCGQ, GFR #### [facility] [address] [place] [id number] Neutrophils/100 WBC (Bld) 58.1 37.0-80.0 % Normal 03-16 [facility] ([place]) ([id number]) Comment: Performed By: #### CBC, ADIF F, ANEU, ABOG #### [address] [address] #### BMP, HCGQ, GFR #### [facility] [address] [place] [id number] phone msg on 08 Phone Msg Normal 03-22-20 [facility] From: [facility] To: Fabian ROSAS, Kayleigh; ([id number]) Sent: 03/22/2019 11:53:40 EDT Subject: BABY ASPIRIN [...] on 2018-08-15 QC TOXSC Valid Normal 08-15-2018 [facility] ([place]) ([id number]) Comment: Performed By: #### TOXSC ### # [address] [address] U Ampheta (AO) Negative Normal 08-15-2018 [facility] ([place]) ([id number]) Comment: Performed By: #### TOXSC ### # [address] [address] U Odalis (AO) Negative Normal 08-15-2018 [facility] ([place] ([id number]) Comment: Performed By: #### TOXSC ### # [address] [address] U Raymond (AO) Negative Normal 08-15-2018 [facility] ([place] ([id number]) Comment: Performed By: #### TOXSC ### # [address] [address] U Cannab (AO) Negative Normal 08-15-2018 [facility] ([place]) ([id number]) Comment: Performed By: #### TOXSC ### # [address] [address] U Cocaine (AO) Negative Normal 08-15-2018 [facility] ([place] ([id number]) Comment: Performed By: #### TOXSC ### # [address] [address] U Methadone (AO) Negative Normal 08-15-2018 [facility] ([place]) ([id number]) Comment: Performed By: #### TOXSC ### # [address] [address] U PCP (AO) Negative Normal 08-15-2018 [facility] ([place] ([id number]) Comment: Performed By: #### TOXSC ### # [address] [address] U TCA (AO) Negative Normal 08-15-2018 [facility] ([place] ([id number]) Comment: Performed By: #### TOXSC ### # [address] [address] Urine Opiates (AO) Negative Normal 08-15-2018 [facility] ([place] ([id number]) Comment: Performed By: #### TOXSC ### # [facility] [address] [place], [place] [address] amni on 2018-08-15 Amnisure Negative Negative Normal 08-15-2018 [facility] ([place]) ([id number]) Comment: Performed By: #### AMNI #### [facility] [address] [place], [place] [address] office visit on 02-21-05 Documentation of Done Invalid 05-19-2017 - [facility] current Interpretation Code 05-19-2017 [facility] and (procedure) Orthopae dics ([id number]) Protein mass conc Done Invalid 05-19-2017 - [facility] Interpretation Code 05-19-2017 [facility] a [facility]opa[facility] ([id number]) Tobacco smoking Current Invalid 05-19-2017 - [facility] status NHIS every day Interpretation Code 05-19-20 [facility] smoker Medicine a nd Orthopaedi cs ([id number]) Tobacco use CPHS Current Invalid 05-19-2017 - [facility] every day Interpretation Code 05-19-2017 [facility] smoker Medicine a nd Orthopaedi cs ([id number]) Vital Signs Vital Sign Description Value / Unit Date Location The following section is limited to 5 en tries per type and includes entries from the following time range: 20170519 - 5. BMI (Body Mass Index) 23.91 kg/m2 05-19-2017 - 05-19-2017 [facility] ([id number]) Height 160.02 cm 05-19-2017 - 05-19-2017 [facility] ([id number]) Weight 61.24 kg 05-19-2017 - 05-19-2017 [facility] ([id number]) Encounters Date Type Reason Provider Location 10-19-2016 - Ambulatory ROD CHAU [facility] 10-20-2016 [place] (0000 0) 09-13-2018 Patient encounter MAR cheng's procedure PARK CASTRO [facility] ([id number]) PRIMARY CARE 07-20-2018 Patient encounter DARION Jarrett MAGALY Ray Ch ildren's procedure EDWIGE FISHMAN MD NO Hospital ([id number]) PRIMARY CARE 05-25-2018 Patient encounter BARBARA CAPONE Cory C hildren's procedure EDWIGE FISHMAN MD NO Hospital ([id number]) PRIMARY CARE 03-15-2018 Patient encounter DARION Jarrett MAGALY Yuanron Ch ildren's procedure PARK CASTRO MD NO [facility] ([id number]) PRIMARY CARE 02-28-2018 Patient encounter CHASE MCCARTHY [facility] ([id number] [phone]) LOVELY HERNANDEZ NO PRIMARY CARE Plan of Treatment Plan Description Date Location EMG EMG 05-19-2017 [facility] 05-19-2017 [facility] ([id number]) Nerve Conduction Nerve Conduction 05-19-2017 - [facility] 05-19-2017 [facility] ([id number]) X-Ray, Wrist X-Ray, Wrist 05-19-2017 - [facility] 05-19-2017 [facility] ([id number]) Appointment Appointment 05-19-2017 - [facility] 05-19-2017 [facility] ([id number]) Payers Payer Name Policy Number Location [facility] [id number] [facility] ([id number]) [id number] [facility] (47560) [id number] [facility] (96823) [id number] [facility] (22907) [id number] [facility] ([id number]) [id number] [facility] ([id number]) The following information is from the original [...] BE BASED ON THE PRIMARY CLINICAL RECORDS. [facility] provides no warranty or guarantee of the accuracy or completeness of information in this document. UNRECOGNIZED CONTENT PROVIDED BELOW FOR UNRECOGNIZED SECTION INFORMATION SOURCE DATE CREATED AUTHOR AUTHOR'S ORGANIZATIO N 02/08/2018 [facility] DATE CREATED AUTHOR AUTHOR'S ORGANIZATIO N 09/28/2018 [facility] DATE CREATED AUTHOR AUTHOR'S ORGANIZATIO N 04/11/2019 [facility] ([place]) DATE CREATED AUTHOR AUTHOR'S ORGANIZATIO N 06/12/2019 [facility]
== END 2019-06-09 20:02 | disposition home or self-care (01) ==
PROVIDERS: Emergency Provider Emergency Medicine
DX: O20.0 Threatened abortion (principal); Z3A.16 16 weeks gestation of pregnancy
CPT/HCPCS: 85025; 85461; 86900; 86901; 99283; A4216; J2790

== ENCOUNTER 2019-07-16 14:43 | Emergency (ER) | payer MEDICAID, SELFPAY ==
[2019-07-16 14:45] VITALS: BP 125/79; PULSE 83; RESP 16; TEMP 36.2; O2SAT 98; BMI 25.7
--- NOTE | 2019-07-16 15:19 | EKG12_ITS ---
Test Reason : SYNCOPE Blood Pressure : / mmHG Vent. Rate : 093 BPM Atrial Rate : 093 BPM P-R Int : 146 ms QRS Dur : 078 ms QT Int : 368 ms P-R-T Axes : 044 056 044 degrees QTc Int : 457 ms Normal sinus rhythm Normal ECG Confirmed by EB HERNANDEZ, SOFIA ([id number]), slot editor ARIANNA JUDD ([id number]) on 07/18/2019 1:02:58 PM Referred By: SAEID Confirmed By:SOFIA PARSON MD
--- NOTE | 2019-07-16 15:21 | ED.DCSUM_ITS ---
History of Present Illness Chief Complaint: Syncope Informant: Patient Onset: Today Context: Onset with activity Timing: Intermittent Quality: Patient has no recall of what happened Location: Unresponsiveness Current Severity: Complains of headache and bleeding Maximum Severity: Unable to determine Worsened by: Nothing Relieved by: Nothing Associated Symptoms: Headache, palpable subcu hematoma and bleeding Narrative: Patient is a 28-year-old G9, P4 AB 4 female who presents after syncopal episode. She states she was at her new job. 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 The next thing she recalls is waking up on the floor. Apparently a customer brought her to the office. She denies prodrome. She denies vaginal bleeding or cramping. She does complain of headache and head trauma. There is no history of PE or DVT. She denies chest pain, shortness of breath or difficulty breathing. She denies leg pain, swelling or discoloration. She denies black or maroon stool. She does complain of nausea presently denies vomiting. She denies abdominal pain or labor pain. Patient is a smoker. She states she did use drugs in the past and has not used anything since . Her drug of choice at that time was cocaine. She presently does not drink. Prior similar symptoms: No Recent Illness/Hospitalization: No - Past Medical History (1) No significant past medical history Status: Acute Past Medical History - Allergies and Home Meds Allergies/Adverse Reactions: Allergies No Known Allergies Allergy (Verified 07/16/19 14:44) Primary Care Physician: Alice Mathew DO [Primary Care Provider] - Prior records reviewed: No Past Medical History: None Lives: With Family Smoking Status: Current every day smoker Alcohol: None Drugs: - - Read HPI Review of Systems General: Denies: Chills, Fever, Malaise, Sweats Eyes: Denies: Visual changes - bilaterally, Blurred Vision - bilaterally ENT: Denies: Bilateral ear pain, Rhinorrhea, Sore throat Cardiovascular: Denies: Chest pain, Palpitations, Heart racing Respiratory: Denies: Dyspnea, Cough, Dyspnea on exertion, Orthopnea, Paroxysmal nocturnal dyspnea Gastrointestinal: Denies: Abdominal pain, Nausea, Vomiting, Diarrhea, Melena, Hematochezia Genitourinary: Denies: Dysuria, Hematuria, Frequency Musculoskeletal: Denies: Myalgias, Arthralgias, Neck pain, Back pain, Extremity Pain Skin: Denies: Rash, Wounds Neurological: Reports: Headache. Denies: Weakness, Parasthesia, Numbness Psych: Denies: Anxiety Endocrine: Denies: Polyuria, Polydipsia Hematologic: Denies: Easy bruising, Easy bleeding Physical Exam Vital Signs/Narrative: Vital Signs Temp Pulse Resp BP Pulse Ox 07/16/19 14:45 97.1 F L 83 16 125/79 H 98 Inital Vital Signs reviewed: Yes General: Well nourished, Well developed, No Acute Distress Head: Normocephalic, Trauma, Tenderness - Right parietal area there is a palpable hematoma. Eyes: Perrl, EOMI, - - There is no subconjunctival hemorrhage.. Negative for: Pale conjunctiva, Scleral icterus ENT: Moist mucous membranes, No rhinorrhea, TM's clear, - - There are no clinical findings of basal skull fracture. Neck: Supple, Nontender, No lymphadenopathy, No JVD, - - No tenderness palpation with full active range of motion. Cardiovascular: Regular rate, Regular rhythm, No murmurs, Normal S1, Normal S2 Respiratory: No distress, CTA bilaterally, Chest nontender Abdomen: Soft, Nontender, Nondistended, Normal bowel sounds Back: Nontender, Normal Inspection. Negative for: CVA tenderness Extremities: Nontender, No edema Skin: Normal color, No rash. Negative for: Cyanosis, Diaphoresis, Jaundice Neurological: Alert, Oriented x3, Cranial nerves II-XII grossly intact, Normal Strength, Normal Sensation, Normal DTR, Normal Gait Psychological: Normal affect Diagnostic/Tx/Re-eval Laboratory Results 07/16/19 07/16/19 07/16/19 15:28 15:35 15:35 WBC 9.6 RBC 3.79 L Hgb 11.7 L Hct 34.5 L MCV 91.0 MCH 30.9 MCHC 33.9 RDW Std Deviation 41.6 RDW Coeff of Ricky 12.6 Plt Count 213 MPV 10.0 Immature Gran % (Auto) 0.500 Neut % (Auto) 75.4 H Lymph % (Auto) 18.0 L Nance % (Auto) 5.6 Eos % (Auto) 0.3 Baso % (Auto) 0.2 Absolute Neuts (auto) 7.3 Absolute Lymphs (auto) 1.73 Nucleated RBC % 0 Sodium 138 Potassium 3.7 Chloride 107 Carbon Dioxide 24.0 Anion Gap 7 BUN 5 L Creatinine 0.49 L Estim Creat Clear Calc 140.13 Est GFR (MDRD) Af Amer 192 Est GFR (MDRD) Non-Af 159 BUN/Creatinine Ratio 10.3 Glucose 84 Calcium 8.7 Total Bilirubin 0.30 AST 10 L ALT 13 Alkaline Phosphatase 56 Total Protein 7.2 Albumin 3.2 Globulin 4.0 Albumin/Globulin Ratio 0.8 L Urine Color Yellow Urine Clarity Clear Urine pH 6.0 Ur Specific [place] 1.020 Urine Protein 30 H Urine Glucose (UA) Normal Urine Ketones Negative Urine Occult Blood Negative Urine Nitrite Negative Urine Bilirubin Negative Urine Urobilinogen Normal Ur Leukocyte Esterase Negative Urine RBC 0 SEEN Urine WBC 0-5 SEEN Ur Squamous Epith Cells 0-5 SEEN Urine Bacteria 1+ Urine Mucus 1+ UA reveals bacteria. This is a good specimen. Since she is we will pain a urine culture and treat with cephalexin. Since she was orthostatic by vital signs a liter of normal saline was ordered. Repeat orthostatic vital signs after 1 L of normal saline is negative. 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 - Rhythm Strip Rhythm Strip: Sinus Rhythm Rate: 88 Ectopy: None - EKG Initial EKG Interpretation: Sinus Rhythm - Sinus rhythm with a ventricular rate of 93. CA interval is 146 ms. QS duration 78 ms. QT duration 368 ms. [place] is normal. The EKG is normal. - Medical Decision Making Patient with syncopal spells while walking without prodrome. She was placed on a monitor to assess for ectopy or dysrhythmia. Twelve-lead EKG was obtained. Will obtain heart tones and appropriate work-up. Patient's OB is part of the [facility]. She is uncertain whether they are affiliated with [facility] or not. Since patient has mild headache after trauma and not before trauma CT of the head was not obtained. She has a nonfocal neurologic exam. C-spine was cleared per Nexus criteria. ED Disposition - Plan for ED Patient: Disposition: Home or Assisted Living Diagnosis: Syncope due to orthostatic hypotension, Second trimester Instructions: HYPOTENSION, Orthostatic Referrals: Alice Mathew DO [Primary Care Provider] - 2 Days Additional Instructions: Aloe up with your dehydrator tender in 3 to 5 days.
[2019-07-16 15:34] LABS: Red Blood Cells-Urine 0 SEEN /hpf (0-5)
[2019-07-16 15:39] VITALS: BP 99/70; PULSE 93; RESP 17; O2SAT 98
[2019-07-16 15:49] LABS: Absolute Lymphocyte Count 1.73 X10^3/uL (0.83-4.51); Absolute Neutrophil Count 7.3 X10^3/uL (2.0-7.7); Basophil# 0.02 X10^3/uL; Basophil% 0.2 % (0-1); Eosinophil# 0.03 X10^3/uL; Eosinophils% 0.3 % (0-5); Hematocrit 34.5 % (37-47); Hemoglobin 11.7 g/dL (12.0-15.0); Lymphocyte # 1.73 X10^3/ul (4.0); Mean Corp Hgb Conc 33.9 g/dL (32-36); Mean Corpuscular Hgb 30.9 pg (27.0-32.0); Monocyte# 0.54 X10^3/uL; Monocyte% 5.6 % (0-10); NRBC Flagged by Analyzer 0 % (0-5); Neutrophil # 7.26 X10^3/uL (2.7-7.7); Neutrophil % 75.4 % (47-70); Platelet Count 213 K/mm3 (150-450); RBC Distribution Width CV 12.6 % (11.6-14.6); RBC Distribution Width SD 41.6 fl (35.1-43.9); Red Blood Count 3.79 M/mm3 (4.2-5.4); White Blood Count 9.6 K/mm3 (4.4-11.0)
[2019-07-16 15:50] VITALS: BP 108/71; BP 96/63; PULSE 114; PULSE 93; PULSE 96
[2019-07-16] MEDS: Diphth,Pertuss(Acell),Tet Vac 0.5 ML Vial IM (15:52)
[2019-07-16 16:00] LABS: Color, Urine Yellow (Yellow); Glucose, Dipstick Normal (Normal); Ketone-Dipstick Negative (Negative); Leukocyte Esterase-Dipstick Negative /ul (Negative); Nitrite-Dipstick Negative (Negative); Occult Blood-Urine Negative /ul (Negative); Protein-Dipstick 30 mg/dl (Negative); Urine Bilirubin Dipstick Negative (Negative); Urine Clarity Clear (Clear); Urine Urobilinogen Normal (Normal)
[2019-07-16 16:03] LABS: Bacteria 1+ /hpf (None Seen); Mucous, Urine 1+ /hpf (<or=2+); Squamous Epithelial Cells - UA 0-5 SEEN /hpf (5-10); White Blood Cells 0-5 SEEN /hpf (0-5)
[2019-07-16 16:09] LABS: ALB/GLOB Ratio 0.8 RATIO (0.9-2.4); AST(SGOT) 10 U/L (15-37); Alanine Aminotransfer ALT/SGPT 13 U/L (13-56); Albumin, Serum 3.2 g/dL (3.2-5.0); Alkaline Phosphatase 56 U/L (45-117); Anion Gap 7 (5-15); BUN 5 mg/dL (7-18); BUN/Creat Ratio 10.3 RATIO (10-20); Calcium,Total 8.7 mg/dL (8.5-10.1); Chloride 107 mmol/L (98-107); Creatinine, Serum 0.49 mg/dL (0.55-1.02); EST Glomerular Filtration Rate 159 mL/min (>60); Est Glom Filt Rate - Afr Amer 192 mL/min (>60); Estimated Creatinine Clearance 140.13 ml/min; Glucose 84 mg/dL (74-106); Potassium 3.7 mmol/L (3.5-5.1); Protein, Total 7.2 g/dL (6.4-8.2); Sodium Level 138 mmol/L (136-145)
[2019-07-16 17:00] VITALS: BP 100/78; PULSE 93; RESP 16; O2SAT 99
[2019-07-16] MEDS: 0.9% Normal Saline 1,000 ML 1000 ML IV (17:00)
[2019-07-16 18:24] VITALS: BP 104/77; BP 113/64; BP 119/72; PULSE 100; PULSE 92; PULSE 93
== END 2019-07-16 18:57 | disposition home or self-care (01) ==
PROVIDERS: Emergency Provider Emergency Medicine
DX: O26.52 Maternal hypotension syndrome, second trimester (principal); O99.332 Smoking (tobacco) complicating pregnancy, second trimester; F17.200 Nicotine dependence, unspecified, uncomplicated; Z3A.00 Weeks of gestation of pregnancy not specified
CPT/HCPCS: 80053; 81001; 85025; 90715; 93005; 96360; 99285; J7030; A4216

== ENCOUNTER 2019-09-09 14:15 | Outpatient (CLI) | payer MEDICAID, SELFPAY ==
[2019-09-09 14:51] VITALS: BMI 25.7
[2019-09-09] MEDS: Acetaminophen 500 MG Tablet 1000 MG PO (15:54)
[2019-09-09 16:15] LABS: ROM Internal Control Test YES-OK TO RESULT pt. (Internal QC); ROM Patient Test Negative (Negative)
--- NOTE | 2019-09-13 20:34 | OB.TRI.NOTE ---
History of Present Illness Date of Service: 09/09/19 Reason For Visit: BACK PAIN Allergies fish Adverse Reaction (Uncoded 09/13/19 14:51) Nausea Laboratory Studies: Laboratory Tests 09/09/19 Range/Units 15:30 Vag Amniotic Fld Detect Negative (Negative) NST - FHR Rate Baby A Baseline: 135 Variability:: Moderate Accelerations:: 15 x 15 Decelerations:: Variable NST Reactive:: Yes Uterine Activity:: Irregular Impression/Plan NST for threatened PTL
== END 2019-09-09 16:40 | disposition home or self-care (01) ==
LOC: WPOUT 14:48 → WP 14:48
PROVIDERS: Visit Provider Obstetrics & Gynecology
DX: O60.00 Preterm labor without delivery, unspecified trimester (principal); Z3A.00 Weeks of gestation of pregnancy not specified
CPT/HCPCS: 59025; 59050; 84112; 99218; G0378

== ENCOUNTER → 2021-03-28 10:01 | Outpatient (CLI) | payer MEDICAID, SELFPAY ==
[2020-06-30 08:23] VITALS: BMI 25.7
--- NOTE | 2021-03-28 10:15 | RAD_ITS ---
STUDY: X-RAY - LUMBAR SPINE REASON FOR EXAM: Female, 30 years old. LUMBAR SPRAIN TECHNIQUE: 3 view(s) of the lumbar spine were obtained. COMPARISON: 04/16/2013 FINDINGS: Normal lumbar lordosis. There is no substantial scoliosis. There is a normal alignment of the vertebrae. Normal vertebral bodies and endplates. Normal disc space heights. The soft tissue structures are unremarkable. RAD/Lumbar Spine 2 or 3 Views IMPRESSION: Normal x-ray examination of the lumbar spine. Electronically Signed: Payam Pablo MD at 12:30 EDT Tel , Service support ,
== END ==
PROVIDERS: Referring Provider Chiropractor; Visit Provider Chiropractor
DX: S33.5XXA Sprain of ligaments of lumbar spine, initial encounter (principal); X58.XXXA Exposure to other specified factors, initial encounter
CPT/HCPCS: 72100

== ENCOUNTER → 2023-03-22 | Outpatient (CLI) | payer MEDICAID, SELFPAY ==
--- NOTE | 2023-03-22 11:23 | MRI_ITS ---
STUDY: MRI RIGHT WRIST WITHOUT CONTRAST REASON FOR EXAM: Female, 32 years old. Right wrist pain. Evaluate for radial styloid tenosynovitis. TECHNIQUE: Standardized fat and water weighted pulse sequences were obtained in all 3 orthogonal planes. COMPARISON: Right hand x-rays dated May 2017. FINDINGS: Normal visualized distal radius and ulna. Small amount of fluid in the distal radioulnar joint (coronal series 6 images 11-14). Normal triangular fibrocartilaginous complex (TFCC). Normal carpal bones. Mild thinning of the articular cartilage of the radial carpal row and the first CMC joint with small effusions (coronal series 6 images 6-12). Normal pisotriquetral articulation. Normal visualized interosseous scapholunate ligament. Normal visualized dorsal (extrinsic) ligaments. Normal visualized volar (extrinsic) ligaments. Normal extensor tendons. Normal flexor tendons. Normal carpal tunnel with a normal median nerve. Normal carpometacarpal articulation of the thumb. Normal second through fifth carpometacarpal articulations. Normal visualized metacarpal bones. Normal soft tissues. 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 Minimal fluid in the distal radioulnar joint. No other abnormality. Electronically Signed: Kj Lester MD at 13:53 EDT ,
== END | disposition home or self-care (01) ==
LOC: MRI 10:44
PROVIDERS: Referring Provider Orthopaedic Surgery Sports Medicine; Visit Provider Orthopaedic Surgery Sports Medicine
DX: M65.4 Radial styloid tenosynovitis [de Quervain] (principal)
CPT/HCPCS: 73221

== ENCOUNTER → 2023-08-03 | Outpatient (CLI) | payer MEDICAID, SELFPAY ==
--- NOTE | 2023-08-03 14:43 | NEURO_ITS ---
NCS and/or EMG Patient Report Ordering Doctor: Sha Franz DATE OF SERVICE: 08/03/23 Iwona presents for electrodiagnostic testing of the upper limbs she reports numbness and tingling in both hands for the past several years. She also reports having wrist pain secondary to de Quervain's tenosynovitis. Electrodiagnostic findings: Median motor nerve demonstration with latency, amplitude and conduction velocity bilaterally. Normal ulnar motor response bilaterally. Sensory responses are within normal limits. Normal median and ulnar F?waves. Patient did not wish to pursue needle EMG testing of the upper limbs. Electrodiagnostic impression: This is a normal electrodiagnostic study of the upper limbs. There is no electrodiagnostic evidence for peripheral neuropathy, including carpal tunnel syndrome. Multi Select Codes Neurology Neurology Interp Codes: 73521-20 [facility] cnd test 13/> studies (interp)
== END | disposition home or self-care (01) ==
LOC: PSN 13:25
PROVIDERS: Referring Provider Orthopaedic Surgery Sports Medicine; Visit Provider Orthopaedic Surgery Sports Medicine
DX: G56.03 Carpal tunnel syndrome, bilateral upper limbs (principal)
CPT/HCPCS: 95913